=== PATIENT | female | born 1965 | race Caucasian/White ===

== ENCOUNTER → 2016-04-21 | Outpatient (CLI) | payer OTHER ==
[~2016-04-21] MED LIST: GLYNASE PRES-T1.5 MG PO; NORVASC 5MG5 MG/TAB PO; PRIL40 PO; TROCHE BASE1 PEL PO
== END ==
LOC: COL.RAD 09:40
PROVIDERS: Psychiatry & Neurology Neurology
DX: R51 Headache (principal)
CPT/HCPCS: Q9967

== ENCOUNTER → 2016-11-02 | Outpatient (CLI) | payer OTHER, BC ==
[~2016-11-02] VITALS: Ht 167.6 cm; Wt 95.2 kg
[2016-11-02 08:50] VITALS: BP 165/94; PULSE 82
[2016-11-02 09:40] VITALS: BP 150/91; PULSE 87
[2016-11-02 09:45] VITALS: BP 151/90; PULSE 83
[2016-11-02 09:50] VITALS: BP 150/90; PULSE 81
== END ==
LOC: COL.RAD 08:21
DX: R91.8 Other nonspecific abnormal finding of lung field (principal); R59.0 Localized enlarged lymph nodes; K76.0 Fatty (change of) liver, not elsewhere classified; Z53.9 Procedure and treatment not carried out, unspecified reason

== ENCOUNTER → 2022-06-15 | Outpatient (CLI) | payer BC | LOC: COL.RAD 14:28 | DX: R91.8 Other nonspecific abnormal finding of lung field (principal) | CPT/HCPCS: Q9967 ==